=== PATIENT | female | born 1950 | race Caucasian/White ===

== ENCOUNTER 2016-12-03 15:50 | Inpatient (IN) | payer MEDICARE ==
[~2016-12-03] VITALS: Ht 154.9 cm; Wt 70.5 kg
--- NOTE | ~2016-12-03 | PR ---
[place], [place] PROGRESS NOTE NAME: CRISPIN RAMÍREZ UNIT #: [id number] ROOM: 311 DOCTOR: JANAE GR BIRTHDATE: [birth year] DOS: 12/05/2016 CHIEF COMPLAINT: "Good morning." SUMMARY OF VISIT: The patient was assessed in her room. She engaged in conversation. No voiced complaints from the patient or from staff regarding the patient needing PRNs or behaviors. MENTAL STATUS: She is alert and oriented to person, place and time. Mood, I believe, is trending towards euthymic. I did not get any sense of overwhelming, depression or anxiety with her, a little bit guarded. No overt signs of auditory or visual hallucinations, delusions or paranoia. PLAN: She is tolerating the Aricept and Namenda. It seems that she is doing well on the Latuda at nighttime and Dr. Pearl also started her on Remeron last night 15 mg at bedtime to help with depression, some PTSD, sleep. She seems to be responding well to this without side effects. So we are going to continue it over the next 24 hours, try to engage in individual and anne milieu therapy and I can make some adjustments tomorrow as needed. GEORGIANA GR CNP CM:PNTRANS [id number] JANAE GR 12/05/16 1533 interface
--- NOTE | ~2016-12-03 | DS ---
[place], [place] DISCHARGE SUMMARY NAME[facility]PIN [id number] UN[facility] #: [id number] ROOM: 311 DOCTOR: JANAE GR BIRTHDATE: [birth year] DOS: 12/10/2016 HISTORY OF PRESENT ILLNESS: This 66-year-old female that resides at [facility] [place], [place], presented to [facility] due to significant mental status change, increasingly agitated, aggressive, banging on doors attempting to leave, shaking the doors trying to open. Staff tried to intervene. She became verbally and physically aggressive. Attempts to redirect were met with increasingly more agitated and aggressive behavior esculated over several weeks. Trigger seems to have been fact that her roommate in her sleep and she was having some flashbacks with regards to this. She was admitted to rule out organic factors and stabilize on medications. PAST MEDICAL HISTORY: Schizoaffective disorder, hypertension, GERD, vitamin D deficiency, seasonal allergies. PLAN: We discontinued her Namzaric in lieu of Aricept and Namenda. We started her on Latuda that was quickly titrated up to 80 mg. We also added Remeron to help with sleep and depression and some PTSD. She responded very well to these medications. DIAGNOSES: AXIS I: Schizoaffective disorder and Alzheimer dementia. MENTAL STATUS: She is alert and oriented to person, place, approximate time. Mood euthymic. Affect is appropriate. No overt signs of auditory or visual hallucinations, delusions, paranoia, rory, or hypomania. There are some short term memory deficits. PLAN: The patient is being discharged back to [facility] in stable condition. She will be on Remeron 15 mg at bedtime. This will help with depression, PTSD, and sleep. We have her on Latuda 80 mg at bedtime. This will help with treatment resistant depression and some of her mood lability and anxiety. We also have her on Aricept 10 mg q. day and Namenda 10 mg b.i.d. If the facility would like to switch her back to the Namzaric, which is a combination pill. They are more than welcome too. We will continue to follow up with her at [facility] and discharge her in stable condition. [place], [place] DISCHARGE SUMMARY NAME: CRISPIN RAMÍREZ UNIT #: [id number] ROOM: 311 DOCTOR: JANAE GR BIRTHDATE: [birth year] GEORGIANA GR CNP CM:DISCHARG [id number] JANAE GR 01/12/17 1121 interface
--- NOTE | ~2016-12-03 | PR ---
[place], [place] PROGRESS NOTE NAME: CRISPIN RAMÍREZ UNIT #: [id number] ROOM: 311 DOCTOR: YOHANA DURAN DO BIRTHDATE: [birth year] DOS: 12/08/2016 CHIEF COMPLAINT: "I feel okay." SUMMARY OF VISIT: The patient was interviewed in the dining area. The patient seemed very, very calm while eating her food. The patient was engaged in superficial conversation. The patient states that she is doing better than yesterday. We did also have a conversation about the patient returning back to [facility] and the patient states that she would not mind going back, but she requested room change. MENTAL STATUS: The patient is alert, oriented to person, possibly place, but not time. Mood is trending towards euthymia. No auditory hallucinations or visual hallucinations, delusions, paranoia was noted. Short term memory is poor. PLAN: We will continue on psychotropic regimen. We will engage in individual and encourage anne milieu activities with ultimate plan to return to [facility] once psychiatrically stable. YOHANA DURAN DO TIANNA PRUITT MD CM:PNTRANS [phone] YOHANA DURAN DO 12/08/16 1026 interface
--- NOTE | ~2016-12-03 | PR ---
[place], [place] PROGRESS NOTE NAME: [facility]ISPIN [facility]Z [id number] UNIT #: [id number] ROOM: 311 DOCTOR: TIANNA PRUITT MD BIRTHDATE: [birth year] DOS: 12/07/2016 CHIEF COMPLAINT: "I think I am worse." SUMMARY OF THE VISIT: The patient was interviewed in the dining area. She seemed very perplexed and bewildered and somewhat anxious. Her mood still do seem to be somewhat labile. She reports she did not sleep well last night and overall states she feels worse since getting here, she does not feel like her current medication regimen is effective. She does, however, deny any side effects from the medicines and none are noted. MENTAL STATUS EXAMINATION: This morning, she is alert and oriented to person, possibly place, but not necessarily time. Mood does still seem to be labile. There is a great deal of thought blocking and processing difficulty and her responses tend to be short and very simple, at times inappropriate. Short term memory is poor. PLAN: Given the fact that she remains grossly psychotic, I will go ahead and increase the Latuda from 40 to 80 mg at bedtime and monitor for risk, benefits. Engage in individual and anne milieu activity with the ultimate plan to return to [place] when psychiatrically stable. TIANNA PRUITT MD CM:PNTRANS [phone] TIANNA PRUITT MD 12/07/16 2338 interface
--- NOTE | ~2016-12-03 | WRIGHTHP ---
[place], [place] PATIENT HISTORY AND PHYSICAL EXAM NAME: [facility]PIN [id number] UNIT #: [id number] ROOM: 311 DOCTOR: TIANNA PRUITT MD BIRTHDATE: [birth year] DOS: 12/04/2016 CHIEF COMPLAINT: "I slept good last night." HISTORY OF PRESENT ILLNESS: This is a 66-year-old white female who resides at [facility] in [place], [place]. The patient had presented here to the [facility] due to a significant change in mental status. The patient became increasingly agitated and aggressive. She was banging on the doors attempting to leave. She was shaking the doors attempting to open it. When staff tried to intervene, she became verbally and physically aggressive. Attempts to redirect were met with her becoming increasingly more agitated and aggressive. This behavior has escalated on the several weeks prior to this admission and seems to be somewhat triggered by the fact that her roommate in her sleep in her room, and she is having some flashbacks of this and is fearful that the same thing will happen to her. She is admitted now to rule out any organic factors to attempt to stabilize on any medication and then returned to [facility]. PAST MEDICAL HISTORY: Remarkable for schizoaffective disorder, hypertension, GERD, vitamin D deficiency and seasonal allergies. MENTAL STATUS: Upon admission, the patient is alert and oriented to person, place and time. There are some mild gaps, but overall she is relatively intact. Mood does seem to be somewhat down and there are anxious overtones. There is mild paranoia and guarding is noted. There are no overt auditory or visual hallucinations reported, and there is no significant delusions reported. However, she is guarded and would not necessarily be forthcoming with me. Short-term memory has mild gaps. Otherwise, she is intact. DIAGNOSES: Schizoaffective disorder and Alzheimer dementia. PLAN: I have discontinued her Namzaric in lieu of utilizing Aricept 10 mg a day and Namenda 10 mg twice a day. I started her on Latuda 40 mg at bedtime to decrease the mood lability and some of the delusional symptoms. I will go ahead and start her on Remeron 15 mg at bedtime to combat the depressive symptomatology in some of the PTSD symptoms. We will engage her in individual and anne milieu activity with the ultimate plan to return to [facility] when psychiatrically stable. [place], [place] PATIENT HISTORY AND PHYSICAL EXAM NAME: CRISPIN RAMÍREZ UNIT #: [id number] ROOM: [employer] DOCTOR: TIANNA PRUITT MD BIRTHDATE: [birth year] TIANNA PRUITT MD CM:HISPHYS:PATIENT HISTORY AND PHYSICAL EXAMINATION [phone] TIANNA PRUITT MD 12/04/16 0855 interface
--- NOTE | ~2016-12-03 | PR ---
[place], [place] PROGRESS NOTE [id number] UNIT #: [id number] ROOM: 311 DOCTOR: JANAE GR BIRTHDATE: [birth year] DOS: 12/09/2016 CHIEF COMPLAINT: "Good morning." SUMMARY OF VISIT: The patient was interviewed in the dining room. She engaged in conversation, very quiet, very soft spoken and very superficial conversation. The only thing she did state is that she did not think that she was sleeping very well; however, further followup with nursing notes that when she was checked on throughout the night that she was sleeping. MENTAL STATUS: She is alert and oriented to person, place, I do not know about time. Mood is definitely trending towards euthymic. Affect appropriate. No overt signs of auditory or visual hallucinations, delusions, paranoia, rory or hypomania. PLAN: I am going to continue with the current psychotropics. If she does complain again tonight of not sleeping, I may consider increasing her Latuda, but other than that, she did state that she feels really good, so we will just monitor her. Plan is to get her back to [facility] once stable. GEORGIANA GR CNP CM:PNTRANS [id number] JANAE GR 12/09/16 1125 interface
--- NOTE | ~2016-12-03 | PR ---
[place], [place] PROGRESS NOTE NAME: CRISPIN RAMÍREZ UNIT #: [id number] ROOM: 311 DOCTOR: TIANNA PRUITT MD BIRTHDATE: [birth year] DOS: 12/08/2016 ADDENDUM Above note reviewed. Agree with observations, recommendations, and overall treatment plan. TIANNA PRUITT MD CM:PNTRANS [id number] TIANNA PRUITT MD 01/29/17 1427 interface
--- NOTE | ~2016-12-03 | PR ---
[place], [place] PROGRESS NOTE NAME: CIRSPIN RAMÍREZ [facility] [id number] UNIT #: [id number] ROOM: 311 DOCTOR: JANAE GR BIRTHDATE: [birth year] DOS: 12/06/2016 CHIEF COMPLAINT: "Good morning." SUMMARY OF VISIT: The patient was assessed in the dining room. She is very quiet, very soft spoken. No p.r.n. medications were needed. She stated that she did sleep well last night. MENTAL STATUS: Alert and oriented to person, place, approximate time. Mood definitely trending towards euthymic. Affect is little flat, but I think this is her baseline. There are no signs or sense of depression or anxiety with her. She is a little quiet may be withdrawn. I do not know if it is guarded or not, but I think this is just her baseline. She is a quiet personal overall. PLAN: We will continue with the Aricept and Namenda. The Latuda seems to be helping as is the Remeron for depression and sleep helping her with her PTSD. No side effects with the medications are noted. We will continue to engage in individual and anne milieu therapy with the plan to discharge once stable. GEORGIANA GR CNP CM:PNTRANS [phone] JANAE GR 12/07/16 0138 interface
[2016-12-03] MEDS ORDERED: MELATONIN3 MG PO (16:20)
[2016-12-03] MEDS ORDERED: FLONASE ALLERG9.9 ML NAS (16:21)
[2016-12-03] MEDS ORDERED: SIMVASTATIN20 MG PO (16:21)
[2016-12-03] MEDS ORDERED: NAMZARIC 28 MG1 EACH PO (16:22)
[2016-12-03] MEDS ORDERED: TRAZODONE50 MG PO (16:22)
[2016-12-03] MEDS ORDERED: VITAMIN D350000 UNIT PO (16:24)
[2016-12-03] MEDS ORDERED: CLARITIN10 MG PO (16:29)
[2016-12-03] MEDS ORDERED: CARAFATE1 G1 PO (16:30)
[2016-12-03] MEDS ORDERED: ASPIRIN81 M1 PO (16:31)
[2016-12-03] MEDS ORDERED: PANTOPRAZOLE SO40 MG PO (16:32)
[2016-12-03] MEDS ORDERED: HALDOL5 MG PO (16:33)
[2016-12-03] MEDS ORDERED: HALDOL5 MG/M1 IM (16:33)
[2016-12-03] MEDS ORDERED: METOPROLOL25 MG PO (16:35)
[2016-12-03] MEDS ORDERED: AMLODIPINE BESYL5 MG PO (16:36)
[2016-12-03 18:44] VITALS: BP 144/68
[2016-12-03 20:02] VITALS: BP 124/64
[2016-12-03 21:23] VITALS: BP 124/64
[2016-12-04 07:41] LABS: BASO # 0.1 10*3/uL (0.0-0.1); BASO % 0.7 % (0.0-1.0); EOS # 0.2 10*3/uL (0.0-0.4); EOS % 2.5 % (1.0-4.0); HEMATOCRIT 39.3 % (37.0-47.0); HEMOGLOBIN 12.7 g/dl (12.0-16.0); LYMPH # 2.1 10*3/uL (1.3-4.4); LYMPH % 22.8 % (27.0-41.0); MEAN CELL VOLUME 88.9 fl (81.0-99.0); MEAN CORPUSCULAR HGB 28.7 pg (27.0-31.0); MEAN CORPUSCULAR HGB CONC 32.3 g/dl (33.0-37.0); MEAN PLATELET VOLUME 9.5 fl (9.6-12.3); MONO # 0.8 10*3/uL (0.1-1.0); MONO % 8.1 % (3.0-9.0); NEUT % 65.5 % (47.0-73.0); PLATELET COUNT AUTOMATED 274 10*3/uL (130-400); RED BLOOD COUNT 4.42 10*6/uL (4.10-5.10); WHITE BLOOD COUNT 9.2 10*3/uL (4.8-10.8)
[2016-12-04 07:59] LABS: BILIRUBIN NEGATIVE (NEGATIVE); BLOOD NEGATIVE (NEGATIVE); CLARITY CLEAR (CLEAR); COLOR YELLOW (YELLOW); GLUCOSE NEGATIVE (NEGATIVE); KETONE TRACE (NEGATIVE); LEUKO ESTERASE NEGATIVE (NEGATIVE); NITRITE NEGATIVE (NEGATIVE); PROTEIN NEGATIVE (NEGATIVE); SPECIFIC GRAVITY 1.015 (1.005-1.030); UROBILINOGEN 0.2 E.U./dl (0.2-1.0)
[2016-12-04 08:21] LABS: ALBUMIN 3.6 gm/dl (3.1-4.5); ALKALINE PHOSPHATASE 103 U/L (45-117); BILIRUBIN, TOTAL 0.3 mg/dl (0.2-1.0); BUN 16 mg/dl (7-24); CARBON DIOXIDE 28 mmol/L (21-32); CHLORIDE 110 mmol/L (98-107); EST GLOM FILT AFRICAN AMERICAN > 60 ml/min; GLUCOSE 101 mg/dL (65-99); POTASSIUM 3.8 mmol/L (3.5-5.1); SGOT/AST 26 IU/L (3-35); SGPT/ALT 32 U/L (12-78); SODIUM 146 mmol/L (136-145); TOTAL PROTEIN 6.8 gm/dL (6.4-8.2)
[2016-12-04 08:33] LABS: VITAMIN D, 25-HYDROXY 36.3 ng/mL (30-100)
[2016-12-04 08:34] LABS: FOLIC ACID 18.25 ng/mL (>5.38)
[2016-12-04 08:36] VITALS: BP 140/71
[2016-12-04 08:49] LABS: BACTERIA TRACE; URINE REFLEX COMMENT NO (NO)
[2016-12-04 19:53] VITALS: BP 158/78
[2016-12-05 07:50] VITALS: BP 125/69
[2016-12-05 19:37] VITALS: BP 127/67
[2016-12-06 07:48] VITALS: BP 133/74
[2016-12-06 19:38] VITALS: BP 144/73
[2016-12-07 07:26] LABS: BUN 17 mg/dl (7-24); CARBON DIOXIDE 27 mmol/L (21-32); CHLORIDE 108 mmol/L (98-107); EST GLOM FILT AFRICAN AMERICAN > 60 ml/min; GLUCOSE 87 mg/dL (65-99); POTASSIUM 3.6 mmol/L (3.5-5.1); SODIUM 144 mmol/L (136-145)
[2016-12-07 08:11] VITALS: BP 128/71
[2016-12-07 20:02] VITALS: BP 134/80
[2016-12-08 07:38] VITALS: BP 116/70
[2016-12-08 20:00] VITALS: BP 138/76
[2016-12-09 08:24] VITALS: BP 127/95
[2016-12-09 19:57] VITALS: BP 116/62
[2016-12-10] MEDS ORDERED: NAMENDA10 MG PO (08:13)
[2016-12-10] MEDS ORDERED: MIRTAZAPINE15 M2 PO (08:13)
[2016-12-10] MEDS ORDERED: LATU80TA PO (08:13)
[2016-12-10] MEDS ORDERED: ARICEPT10 M1 PO (08:13)
[2016-12-10 09:25] VITALS: BP 127/74
== END 2016-12-10 14:30 | disposition other institution (70) | DRG 885 ==
LOC: 3N 15:50
PROVIDERS: Internal Medicine; Psychiatry & Neurology Psychiatry
DX: F25.1 Schizoaffective disorder, depressive type (principal); G30.9 Alzheimer's disease, unspecified; F02.81 Dementia in other diseases classified elsewhere, unspecified severity, with behavioral disturbance; F43.10 Post-traumatic stress disorder, unspecified; I10 Essential (primary) hypertension; K21.9 Gastro-esophageal reflux disease without esophagitis; F91.9 Conduct disorder, unspecified; F41.9 Anxiety disorder, unspecified; E55.9 Vitamin D deficiency, unspecified; J30.2 Other seasonal allergic rhinitis; Z90.49 Acquired absence of other specified parts of digestive tract; Z90.710 Acquired absence of both cervix and uterus; Z98.890 Other specified postprocedural states